=== PATIENT | male | born 1965 | race Caucasian/White ===

== ENCOUNTER 2016-09-19 12:25 | Emergency (ER) | payer BC ==
[2016-09-19] MEDS ORDERED: NS 0.9% 1000 ML* 1,000 ML IV ONE (12:48)
[2016-09-19 13:10] LABS: Hematocrit 38 % (42-52); Hemoglobin 12.4 g/dl (14.0-18.0); Mean Corpuscular HGB Conc 33 g/dl (31-36); Mean Corpuscular Hemoglobin 26 pg (27-31); Mean Corpuscular Volume 80 fL (80-94); Mean Platelet Volume 8 um3 (7.4-10.4); Red Blood Count 4.71 10^6/ul (4.0-5.4); Red Cell Distribution Width 15 % (10.5-15); White Blood Count 9.3 10^3/ul (3.5-10.8)
[2016-09-19 13:29] LABS: BUN/Creatinine Ratio 19.2 (8-20); C Reactive Protein 8.09 mg/L (< 5.00); Calcium 9.3 mg/dL (8.6-10.3); EGFR African American 134.4 (>60); EGFR Non-African American 104.5 (>60); Globulin 3.2 g/dL (2-4); Magnesium 1.9 mg/dL (1.9-2.7); Potassium 3.8 mmol/L (3.5-5.0); Total Bilirubin 0.5 mg/dL (0.2-1.0); Total Protein 7.2 g/dL (6.4-8.9)
[2016-09-19 13:30] LABS: Troponin I 0.01 ng/mL (<0.04)
[2016-09-19] MEDS ORDERED: Iodixanol* (CONTRAST) 320 MG/ML 100 ML SDV IV ONE (13:39)
--- NOTE | 2016-09-19 14:52 | RAD ---
INDICATION: Abdominal pain. COMPARISON: None TECHNIQUE: Axial source images were obtained from the hemidiaphragms to the symphysis pubis following administration of oral and intravenous contrast. 141 mL Visipaque 320 was utilized. Coronal and sagittal reconstructed images were acquired. Lung bases: The lung bases are clear. Liver: The liver is normal in size. There are no masses. There is no ductal dilatation. Gallbladder: There are no calcified gallstones. There is no evidence of wall thickening or pericholecystic fluid. Spleen: The spleen is normal in size. There are no masses. Pancreas: There is no focal pancreatic mass or ductal dilatation. Adrenal glands: There is no evidence of adrenal mass. Kidneys: The kidneys are normal in size and position. There are prompt nephrograms and there is prompt excretion bilaterally. There are no renal parenchymal masses. There is no evidence of nephrolithiasis. Adenopathy: There is no evidence of adenopathy by size criteria. There are small mesenteric lymph nodes. Fluid collections: There are no free or localized fluid collections. Vessels:There are no significant atherosclerotic changes involving the aorta. There is no focal aneurysm. The iliac vessels are normal in caliber. The IVC appears normal. GI tract: There are no acute CT bowel findings. There is gastric bypass surgery. There is a normal CT appearance. The small bowel appears normal. The lower GI tract is normal. The cecum, ileocecal valve, and terminal ileum appear normal. The appendix is visualized and appear normal. Pelvic organs: The prostate and seminal vesicles appear normal Bladder: There are no bladder masses. Abdominal and pelvic soft tissues: The extraperitoneal abdominal and pelvic soft tissues appear normal.. Osseous structures: There are no acute osseous findings. Other: None IMPRESSION: NO ACUTE CT FINDINGS. NO MASS OR INFLAMMATORY CHANGE. GASTRIC BYPASS SURGERY.
[2016-09-19 16:01] LABS: Urine Bilirubin Negative (Negative); Urine Glucose Negative (Negative); Urine Nitrite Negative (Negative)
[2016-09-19 16:09] VITALS: BP 134/79
--- NOTE | 2016-09-19 16:18 | ED ---
Jake Tejeda Billy, scribed for Evelina Zavala MD on 09/19/16 at 1258 . Abdominal Pain/Male - HPI Summary HPI Summary: Patient is a 51 year-old male coming to [facility] presenting with intermittent epigastric pain since yesterday. He is 30 days post-op (miki-en-y gastric bypass with Dr. Cisneros). He describes "hot" sensation, pain severity 3/10. At its worst, pain severity will increase to 8/10 intermittently. Nothing makes his symptoms better or worse; he states that his pain is unassociated with food. He has not taken any NSAIDs since the surgery. The patient has been on a pureed food diet, as directed, for the last 2 weeks. Denies N/V/D. - History of Current Complaint Chief Complaint: EDAbdPain Stated Complaint: ABD PAIN Time Seen by Provider: 09/19/16 12:40 Hx Obtained From: Patient Onset/Duration: Gradual Onset, Still Present Timing: Intermittent, Lasting Days - since yesterday Severity Initially: Moderate Severity Currently: Moderate Pain Intensity: 3 Pain Scale Used: 0-10 Numeric Location: Epigastric Radiates: No Character: Burning - "hot" Aggravating Factor(s): Nothing Alleviating Factor(s): Nothing Associated Signs And Symptoms: Negative: Nausea, Vomiting, Diarrhea - Allergies/Home Medications Allergies/Adverse Reactions: Allergies Allergy/AdvReac Type Severity Reaction Status Date / Time No Known Allergies Allergy Verified 08/19/16 06:20 PMH/Surg Hx/FS Hx/Imm Hx Endocrine/Hematology History: Reports: Hx Diabetes - ON DAILY MEDS Cardiovascular History: Reports: Hx Hypertension - WELL CONTROLLED WITH DAILY MED GI History: Reports: Hx Gastroesophageal Reflux Disease - ON DAILY MEDS, Hx Hiatal Hernia Psychiatric History: Reports: Hx Anxiety - Hx OF, NONE IN PAST 6 MONTHS - Surgical History Surgery Procedure, Year, and Place: 2010 LEFT ROTATOR CUFF REPAIR. 2002 LYMPH NODES BIOPSY, [facility] Hx Anesthesia Reactions: No Infectious Disease History: Yes Infectious Disease History: Denies: Traveled Outside the [place] in Last 30 Days - Family History Family History: No FHx of malignant hyperthermia or anesthesia reaction. - Social History Alcohol Use: None Substance Use Type: Reports: None Smoking Status (MU): Never Smoked Tobacco Have You Smoked in the Last Year: No Review of Systems Negative: Fever Positive: Abdominal Pain. Negative: Vomiting, Diarrhea, Nausea All Other Systems Reviewed And Are Negative: Yes Physical Exam Triage Information Reviewed: Yes Vital Signs On Initial Exam: Initial Vitals Temp Pulse Resp BP Pulse Ox 96.4 F 69 16 140/84 98 09/19/16 12:32 09/19/16 12:32 09/19/16 12:32 09/19/16 12:32 09/19/16 12:32 Vital Signs Reviewed: Yes Appearance: Positive: Well-Appearing, No Pain Distress, Well-Nourished Skin: Positive: Warm, Skin Color Reflects Adequate Perfusion, Dry Head/Face: Positive: Normal Head/Face Inspection Eyes: Positive: EOMI, LINDA Neck: Positive: Supple, Nontender Respiratory/Lung Sounds: Positive: Clear to Auscultation, Breath Sounds Present Cardiovascular: Positive: RRR Abdomen Description: Positive: Nontender, Soft Bowel Sounds: Positive: Hyperactive Musculoskeletal: Positive: Strength/ROM Intact. Negative: Edema Left, Edema Right Neurological: Positive: Sensory/Motor Intact, Alert, Oriented to Person Place, Time, CN Intact II-III Psychiatric: Positive: Affect/Mood Appropriate Diagnostics - Vital Signs Vital Signs Temp Pulse Resp BP Pulse Ox 09/19/16 12:32 96.4 F 69 16 140/84 98 - Laboratory Lab Results: Lab Results 09/19/16 09/19/16 09/19/16 Range/Units 13:00 13:00 15:50 WBC 9.3 (3.5-10.8) 10^3/ul RBC 4.71 (4.0-5.4) 10^6/ul Hgb 12.4 L (14.0-18.0) g/dl Hct 38 L (42-52) % MCV 80 (80-94) fL MCH 26 L (27-31) pg MCHC 33 (31-36) g/dl RDW 15 (10.5-15) % Plt Count 245 (150-450) 10^3/ul MPV 8 (7.4-10.4) um3 Neut % (Auto) 61.4 (38-83) % Lymph % (Auto) 28.5 (25-47) % [place] % (Auto) 5.8 (1-9) % Eos % (Auto) 3.1 (0-6) % Baso % (Auto) 1.2 (0-2) % Absolute Neuts (auto) 5.7 (1.5-7.7) 10^3/ul Absolute Lymphs (auto) 2.7 (1.0-4.8) 10^3/ul Absolute Monos (auto) 0.5 (0-0.8) 10^3/ul Absolute Eos (auto) 0.3 (0-0.6) 10^3/ul Absolute Basos (auto) 0.1 (0-0.2) 10^3/ul Absolute Nucleated RBC 0.01 10^3/ul Nucleated RBC % 0.1 Sodium 136 (133-145) mmol/L Potassium 3.8 (3.5-5.0) mmol/L Chloride 105 (101-111) mmol/L Carbon Dioxide 23 (22-32) mmol/L Anion Gap 8 (2-11) mmol/L BUN 15 (6-24) mg/dL Creatinine 0.78 (0.67-1.17) mg/dL Est GFR ( Amer) 134.4 (>60) Est GFR (Non-Af Amer) 104.5 (>60) BUN/Creatinine Ratio 19.2 (8-20) Glucose 143 H (70-100) mg/dL Calcium 9.3 (8.6-10.3) mg/dL Magnesium 1.9 (1.9-2.7) mg/dL Total Bilirubin 0.50 (0.2-1.0) mg/dL AST 25 (13-39) U/L ALT 27 (7-52) U/L Alkaline Phosphatase 48 (34-104) U/L Troponin I 0.01 (<0.04) ng/mL C-Reactive Protein 8.09 H (< 5.00) mg/L Total Protein 7.2 (6.4-8.9) g/dL Albumin 4.0 (3.2-5.2) g/dL Globulin 3.2 (2-4) g/dL Albumin/Globulin Ratio 1.3 (1-3) Lipase 23 (11.0-82.0) U/L Urine Color Yellow Urine Appearance Clear Urine pH 5.0 (5-9) Ur Specific [place] 1.029 (1.010-1.030) Urine Protein Negative (Negative) Urine Ketones 1+ H (Negative) Urine Blood Negative (Negative) Urine Nitrate Negative (Negative) Urine Bilirubin Negative (Negative) Urine Urobilinogen Negative (Negative) Ur Leukocyte Esterase Negative (Negative) Urine Glucose Negative (Negative) Urine Ascorbic Acid * H (Negative) Result Diagrams: 09/19/16 13:00 09/19/16 13:00 Lab Statement: Any lab studies that have been ordered have been reviewed, and results considered in the medical decision making process. - CT abd/pel w CT Interpretation Completed By: Radiologist - NO ACUTE CT FINDINGS. NO MASS OR INFLAMMATORY CHANGE. GASTRIC BYPASS SURGERY. Re-Evaluation - Re-Evaluation First Eval Re-Evaluation Time: 15:22 Comment: CT abd/pel findings discussed. Abdominal Pain Fem Course/Dx - Course Course Of Treatment: Abd/pel CT was negative as read by radiologist. UA negative. Case discussed with Pat who reviewed CT with Dr. Cisneros, pt aware nancy is president educational institution this weekend - Diagnoses Provider Diagnoses: Abdominal pain - Provider Notifications Discussed Care Of Patient With: Smitha Greenwood (nurse practitioner, [facility] include [facility] beds at the [facility]) @ 1255: agrees for plan for CT abd/pel with contrast. Dr. Stewart (surgery) @ 2052: will discuss with Dr. Cisneros. Discharge - Discharge Plan Condition: Stable Disposition: HOME Patient Education Materials: Abdominal Pain (ED) Referrals: Hardik Marie MD [Primary Care Provider] - The documentation as recorded by the Jake vazquez Billy accurately reflects the service I personally performed and the decisions made by me, Evelina Zavala MD.
== END 2016-09-19 16:14 | disposition home or self-care (01) ==
LOC: ED 12:25
DX: R10.13 Epigastric pain (principal); Z86.79 Personal history of other diseases of the circulatory system; Z98.84 Bariatric surgery status
CPT/HCPCS: 36415; 74177; 80053; 81003; 83690; 83735; 84484; 85025; 86140; 96360; 99282; Q9967

== ENCOUNTER 2018-12-29 01:49 | Emergency (ER) | payer BC ==
[2018-12-29] MEDS ORDERED: Aspirin 81 mg CHEW TAB* 81 MG TAB.CHEW PO ONE (02:07)
[2018-12-29] MEDS ORDERED: Morphine 4 MG/ML VIAL (1 ml) 4 MG/ML VIAL IV ONE (02:08)
[2018-12-29] MEDS ORDERED: Metoclopramide IV* 5 MG/ML 2 ML VIAL IV SLOW PU ONE (02:08)
--- NOTE | 2018-12-29 02:11 | ED ---
HPI Chest Pain - HPI Summary HPI Summary: A 53 y/o male presents to [facility] with a chief complaint of left sided chest pressure for the past 50 minutes. He notes that his pain radiates to his left back and does not radiate to his arm or shoulders. He states that he was diaphoretic, lightheaded and had SOB. He denies N/V. He took NTG GLO[employer] CHAIN DIRECTOR, which was prescribed by his PCP, and claims that it has help his pain, reducing his pain to a 3/10 in severity. He denies a cardiac history, claiming that he has a Hx of anxiety but does not take any medication for anxiety. He notes that his last stress test was 3-4 years ago, and he has not had a cardiac catheterization. - History of Current Complaint Chief Complaint: EDChestPainROMI Time Seen by Provider: 12/29/18 02:00 Hx Obtained From: Patient Onset/Duration: Started Minutes Ago, Still Present Time of Onset: 01:10 Timing: Constant Initial Severity: Moderate Current Severity: Mild Pain Intensity: 3 Pain Scale Used: 0-10 Numeric Chest Pain Location: Diffuse Chest Pain Radiates: Yes Chest Pain Radiates To:: Back - left sided Character: Pressure/Squeezing Aggravating Factor(s): Nothing Alleviating Factor(s): Nothing Associated Signs and Symptoms: Positive: Anxiety, Shortness of Breath, Lightheadedness, Back Pain. Negative: Fever, Nausea, Vomiting - Additional Pertinent History Primary Care Physician: MARY - Allergy/Home Medications Allergies/Adverse Reactions: Allergies Allergy/AdvReac Type Severity Reaction Status Date / Time No Known Allergies Allergy Verified 09/23/16 08:11 Home Medications: Home Medications NK [No Home Medications Reported] 12/29/18 [History Confirmed 12/29/18] PMH/Surg Hx/FS Hx/Imm Hx Endocrine/Hematology History: Reports: Hx Diabetes - NO MEDS SINCE GASTRIC BYPASS SURGERY Cardiovascular History: Reports: Hx Hypertension - NO MEDS SINCE GASTRIC BYPASS SURGERY GI History: Reports: Hx Gastroesophageal Reflux Disease - NO PROBLEM SINCE ABOVE SURGERY, Hx Hiatal Hernia - REPAIRED, Other GI Disorders - GASTRIC BYPASS , CURRENT EPIGASTRIC PAIN Musculoskeletal History: Reports: Hx Bursitis - BILATERAL SHOULDERS, Other Musculoskeletal History - PARTIAL TORN ROTATOR CUFF RIGHT SHOULDER Sensory History: Denies: Hx Contacts or Glasses, Hx Hearing Aid Opthamlomology History: Denies: Hx Contacts or Glasses Neurological History: Reports: Hx Seizures - EPILEPSY A CHILD, NONE SINCE Psychiatric History: Reports: Hx Anxiety - Hx OF, NONE IN PAST 6 MONTHS - Surgical History Surgery Procedure, Year, and Place: 2009 LEFT ROTATOR CUFF REPAIR, [facility]. 2002 LYMPH NODES BIOPSY, [place]. 07/2016 [facility] GASTRIC BYPASS, [facility] Hx Anesthesia Reactions: No Infectious Disease History: No Infectious Disease History: Denies: Traveled Outside the [place] in Last 30 Days - Family History Known Family History: Positive: Other Family History: No FHx of malignant hyperthermia or anesthesia reaction. - Social History Alcohol Use: None Substance Use Type: Reports: None Smoking Status (MU): Never Smoked Tobacco Have You Smoked in the Last Year: No Review of Systems Positive: Skin Diaphoresis. Negative: Fever Positive: Chest Pain Positive: Shortness Of Breath Negative: Vomiting, Nausea Neurological: Other - positive: lightheaded All Other Systems Reviewed And Are Negative: Yes Physical Exam - Summary Physical Exam Summary: VITAL SIGNS: Reviewed. GENERAL: Patient is a well-developed and nourished MALE who is lying comfortable in the stretcher. Patient is not in any acute respiratory distress. HEAD AND FACE: No signs of trauma. No ecchymosis, hematomas or skull depressions. No sinus tenderness. EYES: PERRLA, EOMI x 2, No injected conjunctiva, no nystagmus. EARS: Hearing grossly intact. Ear canals and tympanic membranes are within normal limits. MOUTH: Oropharynx within normal limits. NECK: Supple, trachea is midline, no adenopathy, no JVD, no carotid bruit, no c- spine tenderness, neck with full ROM CHEST: Symmetric, no tenderness at palpation LUNGS: Clear to auscultation bilaterally. No wheezing or crackles. CVS: Regular rate and rhythm, S1 and S2 present, no murmurs or gallops appreciated. ABDOMEN: Soft, non-tender. No signs of distention. No rebound no guarding, and no masses palpated. Bowel sounds are normal. EXTREMITIES: FROM in all major joints, no edema, no cyanosis or clubbing. NEURO: Alert and oriented x 3. No acute neurological deficits. Speech is normal and follows commands. SKIN: Dry and warm Triage Information Reviewed: Yes Vital Signs On Initial Exam: Initial Vitals Temp Pulse Resp BP Pulse Ox 98.2 F 63 18 128/78 100 12/29/18 01:51 12/29/18 01:51 12/29/18 01:51 12/29/18 01:51 12/29/18 01:51 Vital Signs Reviewed: Yes Diagnostics - Vital Signs Vital Signs Temp Pulse Resp BP Pulse Ox 12/29/18 01:51 98.2 F 63 18 128/78 100 - Laboratory Result Diagrams: 12/29/18 02:20 Lab Statement: Any lab studies that have been ordered have been reviewed, and results considered in the medical decision making process. - Radiology CXR Radiology Interpretation Completed By: ED Physician Summary of Radiographic Findings: no acute process. Pending official imaging report. - EKG 02:00 Cardiac Rate: NL - 61 bpm EKG Rhythm: Sinus Rhythm Summary of EKG Findings: NSR at 61 bpm, Normal axis. Normal interval. No ischemic changes. Chest Pain Course/Dx - Course Course Of Treatment: A 53 y/o male presents to [facility] with a chief complaint of left sided chest pressure for the past 50 minutes. He notes that his pain radiates to his left back and does not radiate to his arm or shoulders. He states that he was diaphoretic, lightheaded and had SOB. He denies N/V. He took NTG GLO[employer] SUP[employer] CHAIN DIRECTOR, which was prescribed by his PCP, and claims that it has help his pain, reducing his pain to a 3/10 in severity. He denies a cardiac history, claiming that he has a Hx of anxiety but does not take any medication for anxiety. The physical exam was unremarkable. Bloodwork and chemistries obtained. In the ED course the patient was given Sodium Chloride IV, Reglan IV, Morphine IV and Aspirin PO. EKG showed NSR at 61 bpm, Normal axis. Normal interval. No ischemic changes. CXR showed no acute process. The patient's HEART score is 1. The patient has had two negative troponins and a normal EKG. He will be discharged to have a stress test as an outpatient. He is agreeable with this plan. - Diagnoses Provider Diagnoses: Chest pain Discharge - Sign-Out/Discharge Documenting (check all that apply): Patient Departure - DC Patient Received Moderate/Deep Sedation with Procedure: No - Discharge Plan Condition: Stable Disposition: HOME Patient Education Materials: Chest Pain (DC) Referrals: Emil,Juan J, DO [Primary Care Provider] - (2-3 days) Shane Lopez MD [Medical Doctor] - (call today) Additional Instructions: Call Dr. Lopez today for stress test. PLEASE RETURN TO THE ED IMMEDIATELY FOR WORSENING OR CONCERNING SYMPTOMS. - Billing Disposition and Condition Condition: STABLE Disposition: Home - Attestation Statements Document Initiated by Maddyibe: Yes Documenting Scribe: Villa Eubanks Provider For Whom Mindy is Documenting (Include Credential): Shaq Ojeda MD Scribe Attestation: Villa Tejeda, scribed for Shaq Ojeda MD on 12/30/18 at 1945. Scribe Documentation Reviewed: Yes Provider Attestation: The documentation as recorded by the Villa vazquez accurately reflects the service I personally performed and the decisions made by Willem randolph MD Status of Scribe Document: Viewed
[2018-12-29 02:44] LABS: Activated Partial Thrombo Time 28.1 seconds (26.0-36.3); INR 1.04 (0.82-1.09)
[2018-12-29 02:48] LABS: Albumin 3.9 g/dL (3.2-5.2); Albumin/Globulin Ratio 1.4 (1-3); BUN/Creatinine Ratio 26.4 (8-20); Calcium 8.9 mg/dL (8.6-10.3); EGFR African American 110.6 (>60); EGFR Non-African American 91.4 (>60); Globulin 2.8 g/dL (2-4); Magnesium 2.1 mg/dL (1.9-2.7); Potassium 4.1 mmol/L (3.5-5.0); Total Bilirubin 0.5 mg/dL (0.2-1.0); Total Protein 6.7 g/dL (6.4-8.9)
[2018-12-29 02:50] LABS: Troponin I 0.01 ng/mL (<0.04)
[2018-12-29] MEDS ORDERED: NS 0.9% 1000 ML** 1,000 ML IV ONE (05:04)
[2018-12-29] MEDS ORDERED: Calcium Gluconate INJ* 1 GM in NS 0.9% 100 ML* 100 ML IVPB ONE (05:05)
[2018-12-29 06:04] VITALS: BP 128/78
== END 2018-12-29 06:03 | disposition home or self-care (01) ==
LOC: ED 01:49
DX: R07.9 Chest pain, unspecified (principal); E11.9 Type 2 diabetes mellitus without complications; Z98.84 Bariatric surgery status
CPT/HCPCS: 36415; 71045; 80053; 83735; 84484; 85610; 85730; 93005; 99283; J0610